=== PATIENT | male | born 1990 | race Caucasian/White ===

== ENCOUNTER 2023-09-05 17:57 | Emergency (ER) | payer OTHER ==
[~2023-09-05] VITALS: Ht 170.2 cm; Wt 77.0 kg
[~2023-09-05 17:57] MED LIST: AMOX1TAB16 MT
[2023-09-05 18:03] VITALS: O2SAT 98
[2023-09-05 20:29] LABS: BASOPHILS % 0.8 % (0.0-2.0); EOSINOPHILS % 5.7 % (0.0-5.0); HEMATOCRIT. 41.2 % (42.0-52.0); HEMOGLOBIN. 14.4 g/dL (14.0-18.0); LYMPHOCYTES % 23.7 % (20.0-50.0); MEAN CORPUSCULAR HEMOGLOBIN 29.7 pg (28.0-32.0); MEAN CORPUSCULAR HGB CONC 34.9 g/dL (31.0-37.0); MEAN CORPUSCULAR VOLUME 85.1 fL (80.0-94.0); MEAN PLATELET VOLUME 7.8 fl (7.4-10.4); NEUTROPHILS % 61.8 % (40.0-76.0); PLATELET 292 x1000/uL (130-400); RED BLOOD CELL COUNT 4.84 mill/uL (4.7-6.1); RED CELL DISTRIBUTION WIDTH 14.8 % (11.6-14.6); WHITE BLOOD COUNT 8.7 x1000/uL (4.5-11.0)
[2023-09-05 20:34] LABS: CHLORIDE 104 mEq/L (98-107); POTASSIUM 4.9 mEq/L (3.5-5.1); SODIUM 140 mEq/L (136-145)
[2023-09-05 20:35] LABS: CARBON DIOXIDE 31 mEq/L (21-32)
[2023-09-05 20:36] LABS: CALCIUM 9.1 mg/dL (8.7-10.4)
[2023-09-05 20:40] LABS: CREATININE 0.6 mg/dL (0.6-1.3); GLUCOSE 104 mg/dL (70-105); INR 0.9; PROTHROMBIN TIME 10.2 sec (9.6-11.0)
[2023-09-05 20:41] LABS: UREA NITROGEN BLOOD 11 mg/dL (9-23)
[2023-09-05 20:42] LABS: ALANINE AMINOTRANSFERASE 52 IU/L (10-49); ALBUMIN 4.6 g/dL (3.2-4.8); ASPARTATE AMINOTRANSFERASE 42 IU/L (<34)
[2023-09-05 20:43] LABS: BILIRUBIN TOTAL 0.2 mg/dL (0.1-1.0); PROTEIN TOTAL 8.1 g/dL (6.0-8.3)
[2023-09-05] MEDS ORDERED: BACITRACIN ZINC OINT UDPKT TOP ONE (22:15)
[2023-09-05 22:33] VITALS: BP 129/75; PULSE 64; RESP 15; TEMP 98.1
== END 2023-09-05 22:36 | disposition home or self-care (01) ==
LOC: ER 17:57
DX: L03.012 Cellulitis of left finger (principal); F41.9 Anxiety disorder, unspecified; Z98.890 Other specified postprocedural states
CPT/HCPCS: 36415; 73130; 80053; 85025; 99284